=== PATIENT | male | born 1965 | race Hispanic/Latino ===

== ENCOUNTER 2019-09-06 07:26 | Emergency (ER) | payer BC, OTHER | END 2019-09-06 08:59 | LOC: EDH 07:26 → EEVIPCON 07:26 → EDH 08:59 | DX: S20.312A Abrasion of left front wall of thorax, initial encounter (principal); S80.212A Abrasion, left knee, initial encounter; M54.5 Low back pain; V47.5XXA Car driver injured in collision with fixed or stationary object in traffic accident, initial encounter; Y93.89 Activity, other specified; Y92.89 Other specified places as the place of occurrence of the external cause; Y99.8 Other external cause status | CPT/HCPCS: 71045; 72100; 93005 ==